=== PATIENT | female | born 1995 | race Caucasian/White ===

== ENCOUNTER 2018-08-17 02:04 | Emergency (ER) | payer OTHER ==
[~2018-08-17] VITALS: Ht 162.6 cm; Wt 97.7 kg
[2018-08-17 02:24] LABS: GLUCOSE,POINT OF CARE 120 MG/DL (70-110)
[2018-08-17] MEDS ORDERED: CLINDAMYCIN HCL 150 MG CAPSULE PO ONE (03:00)
[2018-08-17] MEDS ORDERED: IBUPROFEN 800 MG TABLET PO ONE (03:00)
[2018-08-17 04:09] VITALS: BP 115/73
== END 2018-08-17 04:10 | disposition home or self-care (01) ==
LOC: EMS 02:14
DX: K02.9 Dental caries, unspecified (principal); E11.9 Type 2 diabetes mellitus without complications; Z88.1 Allergy status to other antibiotic agents